=== PATIENT | male | born 1950 | race African-American/Black ===

== ENCOUNTER 2018-12-07 12:52 | Inpatient (IN) | payer MEDICARE ==
--- NOTE | 2018-12-07 13:39 | RAD ---
FPortable chest radiograph: 12/07/2018 COMPARISON: 10/05/2014 HISTORY:Left sided deficits, vomiting, hypertension, fall FINDINGS: Cardiac silhouette is prominent suggesting magnification and/or enlargement. No pneumothora x or pleural fluid. No focal consolidation or alveolar edema. IMPRESSION: Prominent cardiac silhouette with no focal consolidation or alveolar edema.
[2018-12-07] MEDS ORDERED: niCARdipine 20MG In NaCl 20 MG/200 ML BAG ONE (13:49)
--- NOTE | 2018-12-07 13:59 | CT ---
FCT brain noncontrast: 12/07/2018 at 1:46 PM HISTORY: 68-year-old male with hypertension, nausea, and vomiting. COMPARISON: 01/26/2016 Dr. Turner discussed the findings and recommendation to ER nurse Juan Alberto Malhotra RN, at 1:55 PM on 12/08/19 19. She will notify Dr. Schumacher as soon as possible. FINDINGS: There is a new round approximately 2.5 x 2.5 cm intra-axial hematoma at the superior medial aspect of the right cerebellar hemisphere, superior to the level of the dentate nucleus. It indents the latera l aspect of the fourth ventricle, but the fourth ventricle is generous in its caliber. No obstructive hydrocephalus. Chronic ischemic white matter changes. No supratentorial hemorrhage, mass effect, mid line shift, or extra-axial fluid collection. IMPRESSION: 1. Acute 2.5 cm intra-axial hematoma in the upper aspect of the right cerebellar hemisphere. 2. Recommend neurosurgical consultation. The patient will require workup with imaging study of the br ain with and without contrast to rule out underlying pathology such as neoplasm, at sometime in the n ear future.
[2018-12-07 14:02] LABS: #Lymphocytes 0.9 thou/uL (1.20-3.40); #Monocytes 0.8 thou/uL (0.11-0.59); #Neutrophils 12.3 thou/uL (1.40-6.50); %Basophils 0.2 % (0.0-1.0); %Eosinophils 0.2 % (0.0-10.0); %Lymphocytes 6.1 % (21.0-51.0); %Monocytes 5.8 % (0.0-10.0); %Neutrophils 87.5 % (42.0-75.0); Hemoglobin 15.8 g/dL (14.0-18.0); Mean Corpuscular HGB CONC 33.8 g/dL (32.0-36.0); Mean Corpuscular Hemoglobin 30.3 pg (27.0-31.0); Mean Corpuscular Volume 89.4 fL (78.0-98.0); Mean Platelet Volume 8.9 fL (7.4-10.4); Platelet Count 238 thou/uL (130-400); RBC Distribution Width 12.7 % (11.5-14.5); Red Blood Cell (RBC) Count 5.23 mill/uL (4.70-6.10)
[2018-12-07 14:25] LABS: ALT (SGPT) 7 U/L (8-55); AST (SGOT) 12 U/L (5-34); Albumin 3.3 g/dL (3.4-4.8); Alkaline Phosphatase 68 U/L (40-150); Anion Gap 13 mmol/L (10-20); BUN (Urea Nitrogen) 12 mg/dL (8.4-25.7); Bilirubin, Total 0.3 mg/dL (0.2-1.2); CK (CPK) 85 U/L (30-200); Calc. Creatinine Clearance 0 mL/min (70-130); Calcium 9.6 mg/dL (7.8-10.44); Carbon Dioxide 28 mmol/L (23-31); Chloride 100 mmol/L (98-107); Estimated GFR-MDRD 76; Globulin 4.7 g/dL (2.4-3.5); Glucose 163 mg/dL (80-115); Potassium 3.8 mmol/L (3.5-5.1); Sodium 137 mmol/L (136-145)
[2018-12-07] MEDS ORDERED: Bisacodyl 10 MG SUPP PR PRN (14:45)
[2018-12-07] MEDS ORDERED: Senokot S 8.6-50 MG TAB PO PRN (14:45)
[2018-12-07] MEDS ORDERED: Acetaminophen 325 MG TAB PO PRN (14:45)
[2018-12-07] MEDS ORDERED: Bisacodyl 5 MG TAB PO PRN (14:45)
[2018-12-07 14:58] LABS: INR-International Normal Ratio 1.1; PTT 31.6 SEC (22.9-36.1); Prothrombin Time 14.5 SEC (12.0-14.7)
[2018-12-07] MEDS ORDERED: niCARdipine 40MG In NaCl 40 MG/200 ML BAG IVPB SCH (15:00)
[2018-12-07] MEDS ORDERED: Communication Order-Pharmacy FS PRN (15:04)
[2018-12-07] MEDS ORDERED: Pantoprazole 40 MG VIAL IVP SCH (15:30)
[2018-12-07 16:20] LABS: Bilirubin Negative (Negative); Blood, Urine Moderate (Negative); Clarity CLOUDY (Clear); Glucose, Urine (Dipstick) 100 mg/dL (Negative); Leukocyte Negative (Negative); Nitrite Negative (Negative); Protein, Urine (Dipstick) > or equal to 300 mg/dL (Neg-Trace); Specific Gravity, Urine 1.024 (1.002-1.036); pH, Urine 6.5 (5.0-9.0)
[2018-12-07 16:24] LABS: Pathc Cast-AUWi Flag 1.63 (0-2.49)
[2018-12-07 16:26] LABS: Sperm-AUWi Flag 1449.3 (0-9.9); Yeast-AUWi Flag 26.2 (0-25.0)
[2018-12-07 16:38] LABS: Bacteria/HPF None Seen HPF (None Seen); Hyaline Casts/LPF NONE SEEN LPF (0-3 Hyaline); Other Casts/LPF None Seen LPF (0-3 Hyaline); Sperm/HPF 4+ HPF (None Seen); Squamous Epithelial 0-3 HPF (0-3); WBC/HPF 0-3 HPF (0-3); Yeast-All Forms None Seen HPF (None Seen)
[2018-12-07 16:56] VITALS: BMI 25.4
[2018-12-07] MEDS: HYDROcodone/Acetaminophen 5/325 mg Tablet PO PRN (17:19)
[2018-12-07] MEDS: Sodium Chloride 0.9% 1,000 ML IV SCH (17:23)
[2018-12-07] MEDS: Sodium Chloride 0.9% (PF) 10 ML VIAL FS PRN (17:25)
[2018-12-07] MEDS: Ondansetron PF 4 MG/2 ML Vial IVP PRN (17:31)
[2018-12-07] MEDS: hydrALAZINE 20 MG/ML VIAL SLOW IVP PRN ×2 (17:37→21:57)
[2018-12-07] MEDS: niCARdipine HCl 50 MG in Sodium Chloride 0.9% 250 ML 230 ML IVPB SCH ×2 (17:45→21:55)
--- NOTE | 2018-12-07 21:44 | HP ---
DICTATED FOR: Dawit Morelos MD This is a 50-minute initial patient evaluation of which greater than 50% of the exam was spent in counseling and coordinating the patient's care. Remainder of the exam was spent in review of appropriate medical records and review of appropriate imaging studies. CHIEF COMPLAINT: Increased falls and left-sided weakness with right cerebellar hemorrhage with right cerebellar bleed. HISTORY OF PRESENT ILLNESS: Mr. Cuadra is a pleasant 68-year-old male, who presents to [facility] with his for the above complaints. Supposedly, he has a remote history of CVA, though has not been on any blood thinners. He is a daily smoker. He presents today with progressive worsening of left-sided weakness and some occasional falls. The patient reports that has been especially worse today which prompted him to come to the emergency room. He denies neck pain or any head or neck trauma. He does have some baseline left-sided weakness, although again this is more pronounced over the past several days. Review of the patient's head CT from today showed some right cerebellar hemorrhage without significant mass effect or midline shift. Fourth ventricle appears to be open. PHYSICAL EXAMINATION: The patient is awake, alert, and appropriate. Currently, his GCS is 15. He has very rare occasional slurred speech, but is appropriate in his interaction with me. His provides some of his history. He follows commands equally in all 4 extremities, though appears to have some mild weakness in the left arm greater than the left leg. He is oriented to person, place, and time. He has a little bit of difficulty with dysmetria bilaterally . Pupils are equal, round, and reactive bilaterally. He does not appear to have any left-sided pronator drift. IMPRESSION AND DIAGNOSIS: Increased falls with some slurred speech with right cerebellar hemorrhage. PLAN: I have discussed the patient's case and imaging with Dr. Morelos. At this time, the patient does not require any type of neurosurgical intervention. I have discussed this with the patient and his family. At this time, we will admit him to the CCU for diligent neuro check. We will plan for repeat head CT sooner should his neurologic exam warranted. At this time, I would like him to be n.p.o. and head of bed elevated at 30 degrees and obviously, we will hold any blood thinners. We will also follow up regarding . Please call with any changes in the patient's neurologic status. Otherwise, we will continue to follow. Job ID: [id number]
[2018-12-08] MEDS: hydrALAZINE 20 MG/ML VIAL SLOW IVP PRN ×3 (00:04→06:16)
[2018-12-08] MEDS: niCARdipine HCl 50 MG in Sodium Chloride 0.9% 250 ML 230 ML IVPB SCH ×5 (00:35→17:41)
--- NOTE | 2018-12-08 08:11 | CT ---
FPRELIMINARY REPORT: CT Head Without Contrast EXAM DATE/TIME: 12/08/2018 3:41 AM CLINICAL HISTORY: 68 years old, male; Condition or disease; Other: Ich; Patient HX: F/u ich TECHNIQUE: Imaging protocol: Axial computed tomography images of the head/brain without contrast. COMPARISON: No relevant prior studies available. FINDINGS: Brain: Known intracranial hemorrhage. Report billed as followup; however, no prior images have been submitted for comparison. 2.7 cm right paracentral cerebellar intraparenchymal hematoma. Volume loss and chronic small vessel ischemic change. No brain edema. Ventricles: Normal. No ventriculomegaly. Bones/joints: Unremarkable. No acute fracture. Sinuses: Small polyp versus mucus retention cyst in the sphenoid sinus. Mastoid air cells: Visualized mastoid air cells are unremarkable. No mastoid effusion. Soft tissues: Unremarkable. IMPRESSION: 1. Known intracranial hemorrhage. Report billed as followup; however, no prior images have been submitted for comparison. 2. 2.7 cm right paracentral cerebellar intraparenchymal hematoma. Thank you for allowing us to participate in the care of your patient. Dictated and Authenticated by: Cameron Jean MD 12/08/2018 3:57 AM Central Time ([place] & [place]) Final report by Dr. Turner Emergency after-hours study CT brain noncontrast: 12/08/2018 at 3:42 AM HISTORY: Follow-up intracranial hemorrhage in 68-year-old male COMPARISON: 12/07/2018 at 1:46 PM FINDINGS: Agree with preliminary report by virtual radiologic. IMPRESSION: 1. Approximately 2.5 cm acute intra-axial hematoma in the right cerebellar hemisphere with minimal lo radha mass effect. No obstructive hydrocephalus. 2. No interval change. Transcribed Date/Time: 12/08/2018 1:12 PM
[2018-12-08] MEDS: Pantoprazole 40 MG VIAL IVP SCH (08:30)
[2018-12-08] MEDS: Sodium Chloride 0.9% (PF) 10 ML VIAL FS PRN (08:30)
[2018-12-08] MEDS ORDERED: Dextrose 50% Abboject 50 ML SYRINGE SLOW IVP PRN (08:57)
[2018-12-08] MEDS ORDERED: Dextrose 5% in Water 1,000 ML IV PRN (08:57)
[2018-12-08] MEDS ORDERED: HumaLOG 300 UNITS/3 ML VIAL SC PRN (08:57)
--- NOTE | 2018-12-08 10:09 | PDOC.PN ---
- Subjective Encounter Start Date: 12/08/18 Encounter Start Time: 10:00 Subjective: pt up in bed upset since he cannot eat. Pt was refusing lab work but upon -: talking with him he has agreeded. we were consulted for medical -: managmenet. - Objective Resuscitation Status - Order Detail: 12/07/18 14:45 Resuscitation Status Routine Co-Sign Provider: Resuscitation Status: FULL: Full Resuscitation Vital Signs & Weight: Vital Signs (12 hours) Temp Pulse BP Pulse Ox 12/08/18 07:12 98 12/08/18 06:16 75 156/60 H 12/08/18 03:55 75 147/56 H 12/08/18 03:00 98.2 F 12/08/18 00:04 75 141/57 H 12/07/18 23:00 98.6 F Weight Weight 172 lb 6.424 oz Most Recent Monitor Data Heart Rate from ECG 86 NIBP 145/59 NIBP BP-Mean 87 Respiration from ECG 18 SpO2 96 I&O: 12/07/18 12/08/18 12/09/18 06:59 06:59 06:59 Intake Total 2199 200 Output Total 300 200 Balance 1899 0 Result Diagrams: 12/07/18 13:55 12/07/18 13:55 Phys Exam - Physical Examination Neck: no nodes, no JVD, supple, full ROM Respiratory: no wheezing, no rales, no rhonchi, wheezing present, clear to auscultation bilateral Cardiovascular: RRR, no significant murmur, no rub, gallop, irregular Gastrointestinal: soft, non-tender, no distention, positive bowel sounds Neurological: non-focal, normal sensation, moves all 4 limbs Dx/Plan (1) Hemorrhagic stroke Code(s): I61.9 - NONTRAUMATIC INTRACEREBRAL HEMORRHAGE, UNSPECIFIED Status: Acute (2) HTN (hypertension) Code(s): I10 - ESSENTIAL (PRIMARY) HYPERTENSION Status: Acute (3) Diabetes Code(s): E11.9 - TYPE 2 DIABETES MELLITUS WITHOUT COMPLICATIONS Status: Acute (4) Smoking Code(s): F17.200 - NICOTINE DEPENDENCE, UNSPECIFIED, UNCOMPLICATED Status: Acute - Plan will check hbg alc, will continue his home meds. -: pt is a smoker wants a nicotine patch. -: PT/OT consulted may need rehab if pt agrees -: pt still on nicardipine * . Review of Systems - Review of Systems Respiratory: negative: Cough, Dry, Shortness of Breath, Hemoptysis, SOB with Excertion, Pleuritic Pain, Sputum, Wheezing Cardiovascular: negative: chest pain, palpitations, orthopnea, paroxysmal nocturnal dyspnea, edema, light headedness, other Gastrointestinal: negative: Nausea, Vomiting, Abdominal Pain, Diarrhea, Constipation, Melena, Hematochezia, Other - Medications/Allergies Allergies/Adverse Reactions: Allergies Allergy/AdvReac Type Severity Reaction Status Date / Time No Known Allergies Allergy Unverified 07/26/15 06:15 Medications: Current Medications Acetaminophen (Tylenol) 650 mg PO Q4H PRN PRN Reason: Headache/Fever/Mild Pain (1-3) Hydrocodone Bitart/Acetaminophen (Ventura 5/325) 1 tab PO Q4H PRN PRN Reason: Moderate to Severe Pain (6-10) Last Admin: 12/07/18 17:19 Dose: 1 tab Amlodipine Besylate (Norvasc) 5 mg PO DAILY DANAY Bisacodyl (Dulcolax) 10 mg AR DAILYPRN PRN PRN Reason: Constipation Bisacodyl (Dulcolax) 10 mg PO DAILYPRN PRN PRN Reason: Constipation Carbidopa/Levodopa (Sinemet 25-250) 1 tab PO TID DANAY Dextrose/Water (Dextrose 50%) 25 gm SLOW IVP PRN PRN PRN Reason: Hypoglycemia Glucagon (Glucagon) 1 mg IM PRN PRN PRN Reason: Hypoglycemia Hydralazine HCl (Apresoline) 10 mg SLOW IVP Q15MIN PRN PRN Reason: SBP greater than 140 Last Admin: 12/08/18 06:16 Dose: 10 mg Nicardipine/Sodium Chloride (Cardene Iv) 40 mg in 200 mls @ 0 mls/hr IVPB INF DANAY; Protocol Sodium Chloride (Normal Saline 0.9%) 1,000 mls @ 50 mls/hr IV .Q20H DANAY Last Admin: 12/07/18 17:23 Dose: 1,000 mls Nicardipine HCl 50 mg/ Sodium (Chloride) 250 mls @ 0 mls/hr IVPB INF DANAY; Protocol Last Admin: 12/08/18 08:32 Dose: 250 mls Dextrose/Water (D5w) 1,000 mls @ 0 mls/hr IV .Q0M PRN PRN Reason: Hypoglycemia Insulin Human Lispro (Humalog) 0 units SC .MILD SLIDING SCALE PRN PRN Reason: Mild Correctional Scale Levothyroxine Sodium (Synthroid) 50 mcg PO DAILY [facility] Losartan Potassium (Cozaar) 50 mg PO DAILY [facility] Metoprolol Tartrate (Lopressor) 50 mg PO BID [facility] Mirtazapine (Remeron) 30 mg PO HS [facility] Miscellaneous Information (Communication Order-Pharmacy) 0 each FS PRN PRN PRN Reason: HOLD BLOOD THINNERS Non-Formulary Medication (Cholecalciferol (Vitamin D3) [Vitamin D3]) 1,000 unit PO DAILY [facility] Ondansetron HCl (Zofran) 4 mg IVP Q6H PRN PRN Reason: Nausea/Vomiting Last Admin: 12/07/18 17:31 Dose: 4 mg Pantoprazole Sodium (Protonix) 40 mg IVP DAILY [facility] Last Admin: 12/08/18 08:30 Dose: 40 mg Senna/Docusate Sodium (Senokot S) 2 tab PO BIDPRN PRN PRN Reason: Constipation Sodium Chloride (Flush - Normal Saline) 10 ml IVF PRN PRN PRN Reason: Saline Flush Sodium Chloride (Normal Saline Pf) 10 ml FS PRN PRN PRN Reason: RECONSTITUTION Last Admin: 12/08/18 08:30 Dose: 10 ml
[2018-12-08 10:13] LABS: #Basophils 0.1 thou/uL (0.0-0.2); #Lymphocytes 1.6 thou/uL (1.20-3.40); #Monocytes 1.2 thou/uL (0.11-0.59); #Neutrophils 10.9 thou/uL (1.40-6.50); %Basophils 0.4 % (0.0-1.0); %Eosinophils 0.3 % (0.0-10.0); %Lymphocytes 11.7 % (21.0-51.0); %Monocytes 8.7 % (0.0-10.0); Hemoglobin 14.4 g/dL (14.0-18.0); Mean Corpuscular HGB CONC 33.8 g/dL (32.0-36.0); Mean Corpuscular Hemoglobin 30.3 pg (27.0-31.0); Mean Corpuscular Volume 89.7 fL (78.0-98.0); Mean Platelet Volume 8.5 fL (7.4-10.4); Platelet Count 236 thou/uL (130-400); RBC Distribution Width 13.1 % (11.5-14.5); Red Blood Cell (RBC) Count 4.76 mill/uL (4.70-6.10); White Blood Cell (WBC) Count 13.7 thou/uL (4.8-10.8)
[2018-12-08 10:22] LABS: Hemoglobin A1c 5.5 % (4.0-6.0)
[2018-12-08] MEDS: Sodium Chloride 0.9% 1,000 ML IV SCH (10:39)
[2018-12-08 10:47] LABS: ALT (SGPT) 8 U/L (8-55); AST (SGOT) 14 U/L (5-34); Albumin 3.2 g/dL (3.4-4.8); Alkaline Phosphatase 55 U/L (40-150); Anion Gap 14 mmol/L (10-20); BUN (Urea Nitrogen) 16 mg/dL (8.4-25.7); Bilirubin, Total 0.4 mg/dL (0.2-1.2); Calc. Creatinine Clearance 46 mL/min (70-130); Carbon Dioxide 23 mmol/L (23-31); Chloride 106 mmol/L (98-107); Estimated GFR-MDRD 48; Globulin 4.3 g/dL (2.4-3.5); Glucose 126 mg/dL (80-115); Potassium 3.6 mmol/L (3.5-5.1); Protein, Total 7.5 g/dL (5.8-8.1); Sodium 139 mmol/L (136-145)
[2018-12-08] MEDS ORDERED: Amlodipine 5 MG TAB PO SCH (12:45)
[2018-12-08] MEDS: Ondansetron PF 4 MG/2 ML Vial IVP PRN (13:11)
[2018-12-08] MEDS: Carbidopa/Levodopa 25-250 mg Tablet PO SCH ×2 (14:40→21:28)
--- NOTE | 2018-12-08 15:31 | PRG ---
DATE OF SERVICE: This is a 30-minute initial hospital visit note, in which 30 minutes were spent reviewing the imaging, record evaluation, examination of the patient, formulation of plan. Greater than 50% time was spent in counseling on Abdoul Cuadra. SUBJECTIVE: Mr. Cuadra was admitted with a right deep cerebellar hemorrhage. He states he fell. However, he did have hypotension upon presentation. There is an ovoid hemorrhage in the deep right cerebellar nuclei and I suspect he is having some cerebellar findings and this is the culprit of his symptoms. It has been stable on repeat head CT this morning and there was no evidence of hydrocephalus and only mild effacement of the fourth ventricle. Essentially, I would be fine with transfer to the neuro floor if we can get him off his nicardipine drip. I would be fine with a systolic blood pressure below 150. He will need followup in approximately 6 weeks with likely an MRI of the brain without and with contrast at that time. He will be transferred to the neuro floor. DIAGNOSIS: Right cerebellar hemorrhage, likely related to hypertension. Job ID: [id number]
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
[2018-12-08] MEDS ORDERED: Metoprolol Tartrate 50 MG TAB PO SCH (21:00)
[2018-12-08] MEDS: Mirtazapine 30 MG TAB PO SCH (21:28)
[2018-12-08] MEDS: Metoprolol Tartrate 50 MG TAB PO SCH (21:28)
[2018-12-09] MEDS: Mirtazapine 30 MG TAB PO SCH ×2 (02:23→21:44)
[2018-12-09] MEDS: Carbidopa/Levodopa 25-250 mg Tablet PO SCH ×4 (02:23→21:44)
[2018-12-09] MEDS: Metoprolol Tartrate 50 MG TAB PO SCH ×3 (02:23→21:44)
[2018-12-09] MEDS: niCARdipine HCl 50 MG in Sodium Chloride 0.9% 250 ML 230 ML IVPB SCH (02:53)
[2018-12-09] MEDS: Levothyroxine Sodium 50 MCG TAB PO SCH (06:15)
[2018-12-09] MEDS: Sodium Chloride 0.9% 1,000 ML IV SCH (06:20)
[2018-12-09] MEDS: Losartan 25 MG TAB PO SCH (08:58)
[2018-12-09] MEDS: Amlodipine 5 MG TAB PO SCH (08:59)
[2018-12-09] MEDS ORDERED: Amlodipine 5 MG TAB PO SCH (09:00)
[2018-12-09] MEDS: Pantoprazole 40 MG VIAL IVP SCH (09:01)
--- NOTE | 2018-12-09 11:46 | PRG ---
DATE OF SERVICE: 12/09/2018 SUBJECTIVE: Romain Cuadra this morning was eating breakfast. He is feeding himself. OBJECTIVE: VITAL SIGNS: The heart rate was in the 60s, blood pressure 151/61, respiratory rates in the high teens. He is in no distress. Oximetry is 98%. LUNGS: Clear. HEART: Regular rhythm. ABDOMEN: Soft. EXTREMITIES: Without asymmetry. Adjust his hypertension medications and we are weaning him off his Cardene. LABORATORY DATA: White count is 13.7, hemoglobin 14.4, platelets 236. Electrolytes are unremarkable. Creatinine went up to 1.71. This will need to continue to be monitored. Once he is off Cardene, he can transfer out of the Critical Care Unit. Clinically, his cerebellar hemorrhage is stable. Job ID: [id number] MTDD
--- NOTE | 2018-12-09 11:54 | PRG ---
DATE OF SERVICE: 12/09/2018 This is Kanu Pan PA-C dictating a report for Dawit Morelos MD. This is a 10-minute subsequent patient evaluation, in which greater than 50% of the exam was spent in counseling and coordinating the patient's care. Remainder of the exam was spent medical records. SUBJECTIVE: Mr. Cuadra is now hospital day #2 having sustained a right cerebellar intraparenchymal hemorrhage. His blood pressure control is still requiring Cardene, although our medical colleagues are diligently working to improve this with oral medications so that he may be transitioned out of the unit. PHYSICAL EXAMINATION: GENERAL: The patient is alert, awake, and appropriate. NEUROLOGIC: GCS is 15. He follows commands equally in all four extremities and frankly looks improved compared to his exam even yesterday. ASSESSMENT AND PLAN: He has been working with therapies, though continues to have significant ataxia and balance difficulties, which is consistent to the location of his bleed. I will attempt to update his later this afternoon, but from neurosurgical standpoint no surgery is required and we will sign off with the understanding that should his neurologic exam change we will be happy to re-evaluate the patient. Please call with any changes in the patient's neurologic status. Job ID: [id number]
[2018-12-10] MEDS: HYDROcodone/Acetaminophen 5/325 mg Tablet PO PRN (01:47)
[2018-12-10] MEDS: Sodium Chloride 0.9% 1,000 ML IV SCH ×2 (01:56→21:12)
[2018-12-10] MEDS: Levothyroxine Sodium 50 MCG TAB PO SCH (07:28)
[2018-12-10] MEDS: Amlodipine 5 MG TAB PO SCH (08:37)
[2018-12-10] MEDS: Losartan 25 MG TAB PO SCH ×2 (08:37→20:51)
[2018-12-10] MEDS: Metoprolol Tartrate 50 MG TAB PO SCH ×2 (08:38→20:51)
[2018-12-10] MEDS: Carbidopa/Levodopa 25-250 mg Tablet PO SCH ×3 (08:43→20:51)
[2018-12-10] MEDS: hydrALAZINE 20 MG/ML VIAL SLOW IVP PRN ×2 (10:18→22:04)
[2018-12-10] MEDS ORDERED: hydrALAZINE 10 MG TAB PO SCH (11:15)
--- NOTE | 2018-12-10 14:38 | PRG ---
DATE OF SERVICE: 12/10/2018 This is Kanu Pan PA-C dictating a report for Dawit Morelos MD. 10 minute subsequent patient evaluation, in which greater than 50% of the exam was spent in counseling and coordinating the patient's care. Remainder of the exam was spent in review of patient's medical records and formulation of treatment plan. Mr. Cuadra is hospital day #3 having sustained a right cerebellar hemorrhage secondary to hypertension. The patient's blood pressure is under much better control with oral medications and he is off his nicardipine. He is safe to transfer to the floor at this time. Neurologically, he looks good. GCS is 15. He has improvement in the slurred speech. He does again have some mild weakness into the left upper and lower extremities. He states he did work with physical therapy yesterday. His main thing today is working with therapies, so he may be stronger on his feet and we will work towards getting him to rehab. Please call with any changes in patient's neurologic status. Job ID: [id number]
--- NOTE | 2018-12-10 16:29 | PRG ---
DATE OF SERVICE: 12/10/2018 SUBJECTIVE: Abdoul Cuadra is clinically unchanged. He is still in the Critical Care Unit. OBJECTIVE: VITAL SIGNS: His heart rate is 69, blood pressure 169/70, respiratory rate , temperature is 97 to 98. LUNGS: Unchanged. HEART: Unchanged. ABDOMEN: Unchanged. LABORATORY DATA: The only lab today is glucose, as these have all been essentially normal. IMPRESSION: Cerebellar bleed, clinically stable. His blood pressures have been relatively controlled. He is tentatively scheduled to move out of the Critical Care Unit. He has left lower and left upper extremity weakness. He also has a chronic baseline, marginally functional mental status from what I can tell, but he is very cooperative. I do not think, he could ever live independently again. He is stable to move. We will sign off when he transfers out of Critical Care. Job ID: [id number]
[2018-12-10] MEDS: Mirtazapine 30 MG TAB PO SCH (20:51)
--- NOTE | 2018-12-10 21:09 | CT ---
CT BRAIN WITHOUT CONTRAST HISTORY: Intracranial hemorrhage, change in mentation. COMPARISON: 12/08/2018 FINDINGS: The approximately 2.7 cm right cerebellar hemispheric acute intra-axial hematoma with minimal local m ass effect is again seen. No obstructive hydrocephalus. No interval change. IMPRESSION: Stable exam
[2018-12-11] MEDS: hydrALAZINE 20 MG/ML VIAL SLOW IVP PRN ×3 (04:07→13:00)
[2018-12-11] MEDS: Levothyroxine Sodium 50 MCG TAB PO SCH (05:04)
--- NOTE | 2018-12-11 06:51 | PDOC.PN ---
- Subjective Encounter Start Date: 12/10/18 - Objective Resuscitation Status - Order Detail: 12/07/18 14:45 Resuscitation Status Routine Co-Sign Provider: Resuscitation Status: FULL: Full Resuscitation Vital Signs & Weight: Vital Signs (12 hours) Temp Pulse Resp BP BP Pulse Ox 12/11/18 04:37 165/70 H 12/11/18 04:07 60 189/79 H 12/11/18 03:25 97.5 F L 68 20 192/78 H 98 12/10/18 23:16 98.7 F 67 18 167/72 H 98 12/10/18 22:04 65 177/87 H 12/10/18 20:06 98.2 F 64 20 208/86 H 94 L Weight Weight 173 lb 8.061 oz Most Recent Monitor Data Heart Rate from ECG 52 NIBP 166/64 NIBP BP-Mean 98 Respiration from ECG 11 SpO2 99 I&O: 12/09/18 12/10/18 12/11/18 06:59 06:59 06:59 Intake Total 2724 1707 1538 Output Total 700 1725 820 Balance 2023 Result Diagrams: 12/08/18 10:05 12/08/18 10:05 Dx/Plan (1) Hemorrhagic stroke Code(s): I61.9 - NONTRAUMATIC INTRACEREBRAL HEMORRHAGE, UNSPECIFIED Status: Acute (2) HTN (hypertension) Code(s): I10 - ESSENTIAL (PRIMARY) HYPERTENSION Status: Acute (3) Diabetes Code(s): E11.9 - TYPE 2 DIABETES MELLITUS WITHOUT COMPLICATIONS Status: Acute (4) Smoking Code(s): F17.200 - NICOTINE DEPENDENCE, UNSPECIFIED, UNCOMPLICATED Status: Acute - Plan * .
[2018-12-11] MEDS: Losartan 25 MG TAB PO SCH ×2 (08:31→20:59)
[2018-12-11] MEDS: Amlodipine 5 MG TAB PO SCH (08:32)
[2018-12-11] MEDS: Carbidopa/Levodopa 25-250 mg Tablet PO SCH ×3 (08:32→20:59)
[2018-12-11] MEDS: Metoprolol Tartrate 50 MG TAB PO SCH ×2 (08:32→21:00)
[2018-12-11] MEDS ORDERED: hydrALAZINE 10 MG TAB PO SCH (09:00)
--- NOTE | 2018-12-11 09:59 | PRG ---
DATE OF SERVICE: 12/11/2018 This is a 15-minute subsequent visit note, in which 15 minutes were spent reviewing the imaging record, evaluation, examination of the patient, formulation of plan greater than 50% time spent in counseling on Abdoul Cuadra. I saw Mr. Cuadra yesterday in the ICU. He was alert, appropriate. He has mild cerebellar findings, but neurologically, he is coming along just fine. He has been weaned off the nicardipine drip. At this point, his neurosurgical issues remain nonsurgical, and we will plan for transfer to the floor and to our medical service. We have spoken with them as well in this regard. I will arrange a followup head CT in my clinic in 1 month, and we should hold any blood thinners at this time. DIAGNOSIS: Cerebral hemorrhage related to hypertension. Job ID: [id number]
--- NOTE | 2018-12-11 12:27 | PQF ---
CLINICAL DOCUMENTATION IMPROVEMENT CLARIFICATION FORM: ICD-10 Updated PLEASE DO AN ADDENDUM TO THE PROGRESS NOTE WITH ANY DOCUMENTATION UPDATES OR ADDITIONS AND CARRY THROUGH TO DC SUMMARY. THANK YOU. DATE: 12/11/2018; 12/12/2018 ATTN: Dr. Rausch; Dr. Spring Please exercise your independent, professional judgment in responding to the clarification form. Clinical indicators are provided on the bottom of this form for your review Please check appropriate box(s): [ X ] Acute Renal Failure (ARF) / Acute Kidney Injury (TI) [ ] Acute on Chronic Renal Failure please specify Stage of CKD ____(see below) [ ] CKD without ARF/TI please specify Stage of CKD [ ] Other diagnosis [ ] Unable to determine In addition, please specify: Present on Admission (POA): [ ] Yes [ X ] No [ ] Unable to determine For continuity of documentation, please document condition throughout progress notes and discharge summary. Thank You. CLINICAL INDICATORS - SIGNS / SYMPTOMS/ LABS are present in the medical record: 12/07/2018 12/08/2018 LABS: Creatinine 1.16 1.71 Estimated GFR 76 48 12/09(Luna): Creatinine went up to 1.71 This will need to continue to be monitored RISKS: H&P 12/07: Remote hx of CVA. Dx: Right cerebellar hemorrhage Pn 12/07: HTN, Diabetes. TREATMENT: Order 12/07- 12/11: NS 1,000ml IV 50 mls/hr Order Lab CMP 12/07, 12/08 National [employer] Guidelines for CKD Staging Stage I Kidney damage with normal or increased GFR GFR > 90 Stage II Kidney damage with mildly decreased GFR GFR 60-89 Stage III Kidney damage with moderately decreased GFR GFR 30-59 Stage IV Kidney damage with severely decreased GFR GFR 16-29 Stage V Kidney failure GFR<15 ESRD End Stage Renal Disease On dialysis Acute Renal Failure/Acute Kidney Failure defined as: Increases in SCr by (>) 0.3 mg/dl within 48 hours OR- Increases in SCr by (>) 1.5 times baseline, known or presumed to have occurred within the prior 7 days OR- Urine volume < 0.5 ml/kg/hour for 6 hours (KDIGO supplement 2012 for RIFLE/JOSH criteria) Thank you, Roxanne (This form is maintained as a part of the permanent medical record) 2015 [employer] All Rights Reserved Roxanne Beverly RN, BSN [email or web address] Office: [phone] [facility] DIVISIONBrian
[2018-12-11] MEDS ORDERED: Hydrochlorothiazide 25 MG TAB PO SCH (16:45)
--- NOTE | 2018-12-11 16:57 | PRG ---
DATE OF SERVICE: 12/11/2018 SUBJECTIVE: The patient denies any particular complaints, and he feels strongly that he wants to go home. He knows that it has been recommended that he consider going to rehab at this time, but he thinks he would be okay. OBJECTIVE: VITAL SIGNS: Temperature 97.7, pulse 56, respirations 16, O2 saturation 98%, and BP is 164/70. GENERAL APPEARANCE: Age-appropriate male. He is in no distress. He is conversant, a little difficult to understand, but seems appropriate. HEART: Regular rate and rhythm. LUNGS: Clear bilaterally. ABDOMEN: Soft, nontender, and nondistended. Positive bowel sounds. No masses and no organomegaly. EXTREMITIES: Warm and dry. NEUROLOGIC: Grossly neurologically intact. LABORATORY DATA: Blood sugar 95 to 145. IMPRESSION AND PLAN: 1. Acute cerebellar bleed, nonsurgical candidate, appears to be stable. Continue with rehab therapies and consider outpatient rehab versus swing bed or inpatient. Currently, Case Management continues to help work with them through that process. After discussing this with the patient, he appears to be more amenable to it and open to the possibilities at least. 2. Acute renal insufficiency. The patient's creatinine has been up above his baseline and his estimated GFR declines to 48 at last check. We will repeat that now as it has been a couple of days since that was last evaluated. 3. Hypertension. The patient is on several medications including losartan 50 b.i.d., Lopressor 50 b.i.d., amlodipine 10 mg daily along with p.r.n. hydralazine. He has blood pressure continues to run a bit high. We will add some hydrochlorothiazide and may need more aggressive interventions as well. 4. Hypothyroidism. Continue with his usual home regimen. 5. Diabetes mellitus, well controlled. 6. Tobacco abuse. The patient has been counseled regarding cessation. Job ID: [id number]
[2018-12-11 17:37] LABS: Anion Gap 10 mmol/L (10-20); BUN (Urea Nitrogen) 11 mg/dL (8.4-25.7); Calc. Creatinine Clearance 74 mL/min (70-130); Calcium 8.7 mg/dL (7.8-10.44); Carbon Dioxide 25 mmol/L (23-31); Chloride 105 mmol/L (98-107); Estimated GFR-MDRD 83; Glucose 120 mg/dL (80-115); Potassium 3.3 mmol/L (3.5-5.1); Sodium 137 mmol/L (136-145)
[2018-12-11] MEDS: Mirtazapine 30 MG TAB PO SCH (20:59)
[2018-12-12] MEDS: hydrALAZINE 20 MG/ML VIAL SLOW IVP PRN ×2 (04:51→07:37)
[2018-12-12] MEDS: Levothyroxine Sodium 50 MCG TAB PO SCH (05:00)
[2018-12-12] MEDS ORDERED: Potassium Chloride 20 MEQ TAB PO SCH (08:15)
--- NOTE | 2018-12-12 08:15 | PDOC.PN ---
- Subjective Encounter Start Date: 12/12/18 Encounter Start Time: 10:50 Subjective: Patient feeling ok. No pain this AM. Some dysarthria. - Objective Resuscitation Status - Order Detail: 12/07/18 14:45 Resuscitation Status Routine Co-Sign Provider: Resuscitation Status: FULL: Full Resuscitation MAR Reviewed: Yes Vital Signs & Weight: Vital Signs (12 hours) Temp Pulse Resp BP BP Pulse Ox 12/12/18 07:43 97.9 F 55 L 14 185/77 H 98 12/12/18 07:37 55 L 198/79 H 12/12/18 04:51 59 L 198/81 H 12/12/18 04:00 98.3 F 63 19 177/80 H 96 12/12/18 00:00 97.9 F 63 18 167/85 H 96 12/11/18 20:59 97 Weight Weight 173 lb 8.061 oz Most Recent Monitor Data Heart Rate from ECG 52 NIBP 166/64 NIBP BP-Mean 98 Respiration from ECG 11 SpO2 99 I&O: 12/11/18 12/12/18 12/13/18 06:59 06:59 06:59 Intake Total 1538 Output Total 820 425 Balance 718 -425 Result Diagrams: 12/08/18 10:05 12/11/18 17:03 Additional Labs: Accuchecks 12/12/18 12/11/18 12/11/18 06:25 19:25 17:31 POC Glucose 98 121 H 111 H 12/11/18 12/11/18 12/10/18 10:34 04:59 21:18 POC Glucose 107 111 H 145 H 12/10/18 12/10/18 16:35 12:01 POC Glucose 95 149 H Phys Exam - Physical Examination Constitutional: NAD HEENT: moist MMs Respiratory: no wheezing, no rales, no rhonchi Cardiovascular: RRR, no significant murmur Gastrointestinal: soft, non-tender, positive bowel sounds Musculoskeletal: no edema Psychiatric: normal affect, A&O x 3 Dx/Plan (1) Hemorrhagic stroke Code(s): I61.9 - NONTRAUMATIC INTRACEREBRAL HEMORRHAGE, UNSPECIFIED Status: Acute (2) HTN (hypertension) Code(s): I10 - ESSENTIAL (PRIMARY) HYPERTENSION Status: Chronic Qualifiers: Hypertension type: essential hypertension Qualified Code(s): I10 - Essential (primary) hypertension Comment: Still severely elevated, adding Hydralazing 50mg TID, BP dropped after morning dose, 190s --> 160s now. (3) Diabetes Code(s): E11.9 - TYPE 2 DIABETES MELLITUS WITHOUT COMPLICATIONS Status: Chronic Qualifiers: Diabetes mellitus type: type 2 Comment: good control (4) Smoking Code(s): F17.200 - NICOTINE DEPENDENCE, UNSPECIFIED, UNCOMPLICATED Status: Chronic (5) Acute renal failure Status: Resolved - Plan cont current plan of care, PT/OT, DVT proph w/SCDs Accepted to [facility] -: BP improved with Hydralazine, stable for d/c, can titrate up further -: as needed as outpatient. * . - Discharge Day Encounter end time: 11:20
[2018-12-12] MEDS: Losartan 25 MG TAB PO SCH (08:47)
[2018-12-12] MEDS: Carbidopa/Levodopa 25-250 mg Tablet PO SCH ×2 (08:48→15:28)
[2018-12-12] MEDS: Amlodipine 5 MG TAB PO SCH (08:48)
[2018-12-12] MEDS: Metoprolol Tartrate 50 MG TAB PO SCH (08:49)
[2018-12-12] MEDS: hydrALAZINE 25 MG TAB PO SCH ×2 (08:49→16:12)
[2018-12-12] MEDS ORDERED: Hydrochlorothiazide 25 MG TAB PO SCH (09:00)
--- NOTE | 2018-12-12 13:48 | DIS ---
DATE OF ADMISSION: 12/07/2018 DATE OF DISCHARGE: 12/12/2018 PRIMARY CARE PHYSICIAN: [facility] in [place]. REASON FOR ADMISSION: Intracranial hemorrhage. DIAGNOSES AT DISCHARGE: 1. Hemorrhagic stroke. 2. Hypertension. 3. Diabetes mellitus type 2. 4. Tobacco abuse. 5. Acute renal failure, resolved. PROCEDURES: CT of the brain showing acute 2.5 cm intraaxial hematoma in the upper aspect of the right cerebellar hemisphere. Followup CT is showing a stable, maxing out 2.7 cm. Initial admission team neurosurgery, Dr. Morelos. CONSULTATIONS: 1. [facility] service now by primary team. 2. Pulmonology, Dr. Luna. SUMMARY OF HOSPITAL COURSE: This is a 68-year-old male with a known history of uncontrolled hypertension and daily smoking. He has been having some left-sided weakness and occasional falls progressing over time. In the ER, CT was found to have right cerebellar hemorrhage without significant mass effect. He was admitted to the Neurosurgery Service. He had tight control of his blood pressures and monitoring. He had no progression of the hemorrhage. Eventually, he was weaned off Cardene drip and transferred to the stroke floor. The patient did physical therapy, speech therapy, and occupational therapy while in the hospital. He did have significantly elevated blood pressures after weaning off the antihypertensive drips. He had increase in his oral medications and on the day of discharge, hydralazine 50 mg 3 times a day was added, which brought his systolic down to the 160s. He was doing well with physical therapy and is being transferred to [facility]. Of note, the patient did have a bump in his creatinine soon after admission from 1.16 up to 1.71, this resolved down to 1.07 at discharge. DISCHARGE MANAGEMENT: Discharged to the [facility] in [place]. ACTIVITY: As tolerated. DIET: Healthy heart low-sodium diet. THERAPY: Occupational, physical, and speech therapy. FOLLOWUP: Follow up with [facility] after rehab stay and follow up with Dr. Morelos in 1 month. DISCHARGE MEDICATIONS: 1. Amlodipine 10 mg daily. 2. Acetaminophen as needed. 3. Dulcolax as needed. 4. Carbidopa/levodopa 25/100 mg 3 times a day. 5. Vitamin D3 of 1000 units daily. 6. Hydralazine 50 mg 3 times a day. 7. Hydrochlorothiazide 25 mg daily. 8. Levothyroxine 50 mcg daily. 9. Losartan 50 mg twice a day. 10. Metoprolol tartrate 50 mg twice a day. 11. Mirtazapine 30 mg at night. 12. Protonix 40 mg daily. Arranging the details of this discharge took 32 minutes. Job ID: [id number]
[2018-12-12] MEDS ORDERED: Carbidopa/Levodopa 25-100 mg Tablet PO SCH (15:00)
[2018-12-12 16:03] VITALS: TEMP 98.3
--- NOTE | 2018-12-12 16:11 | PRG ---
DATE OF SERVICE: 12/12/2018 This is Kanu Pan PA-C dictating a report for Dawit Morelos MD. This is a 10-minute subsequent patient evaluation, in which greater than 50% of the exam was spent in counseling and coordinating the patient's care. Remainder of the exam was spent in review of the patient's medical records and formulation of treatment plan. Mr. Cuadra is hospital day #5, having sustained a right cerebellar hemorrhage secondary to hypertension. The patient is very frustrated that he is still in the hospital. He denies headache. He has stable left upper and lower extremity weakness and this has been stable since his hospital stay. He is oriented to person, place, and time. Main issue now is blood pressure control and our medical colleagues are attempting to control this with oral medications. Ideally, his systolic blood pressure would remain less than 150 and it is likely that the patient has longstanding hypertension at baseline. The patient should continue to work with therapies and we will provide followup appointments in our clinic and continue to follow the patient at this time. Please call with any changes in the patient's neurologic status, otherwise blood pressure control is paramount at this time. Job ID: [id number]
[2018-12-12 17:05] VITALS: BP 158/66
== END 2018-12-12 17:23 | DRG 65 ==
LOC: ERS 12:52 → CCU 16:35 → 2SE 12-10 15:35
PROVIDERS: ADMIT Surgery; ATTEND Surgery
DX: I61.4 Nontraumatic intracerebral hemorrhage in cerebellum (principal); G81.94 Hemiplegia, unspecified affecting left nondominant side; N17.9 Acute kidney failure, unspecified; E11.9 Type 2 diabetes mellitus without complications; F17.210 Nicotine dependence, cigarettes, uncomplicated; E03.9 Hypothyroidism, unspecified; E78.00 Pure hypercholesterolemia, unspecified; I50.9 Heart failure, unspecified; R29.712 NIHSS score 12; R47.81 Slurred speech; I11.0 Hypertensive heart disease with heart failure; F41.9 Anxiety disorder, unspecified; F43.10 Post-traumatic stress disorder, unspecified; Z79.899 Other long term (current) drug therapy; Z95.5 Presence of coronary angioplasty implant and graft
CPT/HCPCS: 36415; 36416; 70450; 71045; 80048; 80053; 81003; 81015; 82550; 83036; 84484; 85025; 85610; 85730; 93005; 96365; 96366; C9113; J0360; J2405; J7050

== ENCOUNTER 2020-08-27 15:48 | Emergency (ER) | payer MEDICARE, OTHER ==
[2020-08-27 16:26] LABS: Bilirubin Negative (Negative); Blood, Urine Trace (Negative); Clarity Turbid (Clear); Glucose, Urine (Dipstick) Normal (Negative); Ketone, Urine Negative (Negative); Leukocyte Negative Leu/uL (Negative); Nitrite Negative (Negative); Protein, Urine (Dipstick) 600 mg/dL (Neg-Trace); RBC/HPF 0-3 HPF (0-3); Specific Gravity, Urine 1.025 (1.002-1.036); Squamous Epithelial 0-3 HPF (0-3); Urobilinogen 3 mg/dL (Less than 2)
[2020-08-27 16:33] LABS: Bacteria/HPF 1+ HPF (None Seen); Sperm/HPF Rare HPF (None Seen)
[2020-08-27 16:39] LABS: #Eosinphils 0.1 thou/uL (0.0-0.7); #Lymphocytes 1.2 thou/uL (1.20-3.40); #Monocytes 0.7 thou/uL (0.11-0.59); #Neutrophils 10.6 thou/uL (1.40-6.50); %Basophils 0.3 % (0.0-1.0); %Eosinophils 0.4 % (0.0-10.0); %Lymphocytes 9.4 % (21.0-51.0); %Monocytes 5.6 % (0.0-10.0); %Neutrophils 84.2 % (42.0-75.0); Hemoglobin 9.7 g/dL (14.0-18.0); Mean Corpuscular HGB CONC 32.3 g/dL (32.0-36.0); Mean Corpuscular Volume 86.7 fL (78.0-98.0); Mean Platelet Volume 8.3 fL (7.4-10.4); Platelet Count 388 thou/uL (130-400); RBC Distribution Width 14.3 % (11.5-14.5); Red Blood Cell (RBC) Count 3.46 mill/uL (4.70-6.10); White Blood Cell (WBC) Count 12.6 thou/uL (4.8-10.8)
--- NOTE | 2020-08-27 16:49 | RAD ---
RADIOGRAPH CHEST 1 VIEW: DATE: 08/27/2020 TIME: 4:37 PM HISTORY: 70-year-old male with altered mental status. Concern for aspiration. COMPARISON: 03/17/2020 FINDINGS: New airspace opacity at right lower lung zone. New diffuse haziness throughout the entire left lung. No cardiomegaly or pneumothorax. IMPRESSION: 1) right lower lung zone infiltrate: Pneumonia versus aspiration pneumonitis. 2) diffuse haziness of the entire left lung: Technical artifact versus unilateral diffuse mild inters titial infiltrates.
[2020-08-27 17:02] LABS: Anion Gap 15 mmol/L (10-20); BUN (Urea Nitrogen) 32 mg/dL (8.4-25.7); Calc. Creatinine Clearance 0 mL/min (70-130); Carbon Dioxide 25 mmol/L (23-31); Chloride 112 mmol/L (98-107); Potassium 3.8 mmol/L (3.5-5.1); Sodium 148 mmol/L (136-145)
[2020-08-27 17:03] LABS: ALT (SGPT) Less than 7 U/L (8-55); AST (SGOT) 32 U/L (5-34); Albumin 2.7 g/dL (3.4-4.8); Alkaline Phosphatase 88 U/L (40-110); Bilirubin, Total 0.3 mg/dL (0.2-1.2); Calcium 7.6 mg/dL (7.8-10.44); Globulin 4.7 g/dL (2.4-3.5); Glucose 128 mg/dL (80-115); Protein, Total 7.4 g/dL (5.8-8.1)
[2020-08-27] MEDS ORDERED: Cefepime 1 GM VIAL ONE (17:04)
[2020-08-27] MEDS ORDERED: Levofloxacin 500 mg/D5W 100 ml Premix Bag ONE (17:04)
[2020-08-27 17:22] LABS: CKMB 1.5 ng/mL (0-6.6)
--- NOTE | 2020-08-27 17:48 | CT ---
CT BRAIN NONCONTRAST: DATE: 08/27/2020 HISTORY: 70-year-old male with fever FINDINGS: There is no evidence of acute intra-axial or extra-axial hemorrhage. There is no midline shift or any other mass effect. There is no extra-axial fluid collection. There is no evidence of obstructive hydrocephalus. Calvarium is intact. There is diffuse brain parenchymal volume loss. There are low att enuation areas in the white matter. These are nonspecific, but in a patient of this age, they are probably chronic ischemic white matter changes due to microvascular atherosclerosis. There is moderat e to severe dilation of the fourth ventricle on an ex vacuo basis due to especially severe atrophy of the bambi, midbrain, and bilateral middle cerebellar peduncles. There is asymmetrical soft tissue t hickening in the right side of the posterior aspect of the nasopharynx. IMPRESSION: 1) No acute intracranial findings. 2) diffuse involutional changes and chronic ischemic white matter changes. 3) especially high-grade atrophy of the brainstem. This raises the possibility of MSA (multisystem at formerly [facility]). 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 Recommend otolaryngology cons ultation on nonemergent basis.
--- NOTE | 2020-08-27 17:54 | CT ---
CT ANGIOGRAM THORAX WITH CONTRAST: (CTA pulmonary angiogram) DATE: 08/27/2020 HISTORY: 70-year-old COVID-19 positive male with fever TECHNIQUE: IV injection of iodinated contrast. Scan acquisition timing attempted to coincide with iodinated contrast bolus reaching maximal density in pulmonary arteries. 3-D MIP reconstructions. FINDINGS: There are multifocal moderate sized patchy confluent infiltrates in the bilateral upper lobes, bilate ral lower lobes, and to a much lesser degree right middle lobe. Much of the infiltrates are groundglass. Other areas have early mosaic patterns. An infiltrate in the right lower lobe is a conso lidation. There is noncalcified nonspecific moderate mediastinal and bilateral hilar lymphadenopathy. No pulmonary thromboembolism. No thoracic aortic aneurysm or dissection. No pericardial effusion. Tiny left pleural effusion. Multiple calcified gallstones. IMPRESSION: 1) positive for bilateral COVID-19 pneumonia. 2) cholelithiasis. 3) no pulmonary thromboembolism.
[2020-08-27 19:14] LABS: Troponin I 0.036 ng/mL (< 0.028)
== END 2020-08-27 20:25 ==
LOC: ERS 15:48
DX: U07.1 COVID-19 (principal); J12.89 Other viral pneumonia; L89.159 Pressure ulcer of sacral region, unspecified stage; E03.9 Hypothyroidism, unspecified; E78.5 Hyperlipidemia, unspecified; E78.00 Pure hypercholesterolemia, unspecified; E11.9 Type 2 diabetes mellitus without complications; E78.1 Pure hyperglyceridemia; I11.0 Hypertensive heart disease with heart failure; I50.9 Heart failure, unspecified; D64.9 Anemia, unspecified; F17.210 Nicotine dependence, cigarettes, uncomplicated; I25.2 Old myocardial infarction
CPT/HCPCS: 36415; 51701; 70450; 71045; 71275; 80053; 81003; 81015; 82553; 83605; 84484; 85025; 87040; 87086; 87149; 93005; 96365; 96366; 96367; J0692; J1956

== ENCOUNTER 2021-08-04 10:20 | Inpatient (IN) | payer MEDICARE, MEDICAID ==
[2021-08-04 12:03] LABS: Hemoglobin 6.5 g/dL (14.0-18.0); Mean Corpuscular Hemoglobin 22.6 pg (27.0-31.0); Mean Corpuscular Volume 75.3 fL (78.0-98.0); Mean Platelet Volume 8.6 fL (7.4-10.4); Platelet Count 432 thou/uL (130-400); RBC Distribution Width 17.4 % (11.5-14.5); Red Blood Cell (RBC) Count 2.87 mill/uL (4.70-6.10); White Blood Cell (WBC) Count 7.8 thou/uL (4.8-10.8)
[2021-08-04 12:04] LABS: ALT (SGPT) 7 U/L (8-55); AST (SGOT) 11 U/L (5-34); Albumin 2.8 g/dL (3.4-4.8); Alkaline Phosphatase 45 U/L (40-110); Anion Gap 11 mmol/L (10-20); BUN (Urea Nitrogen) 25 mg/dL (8.4-25.7); Bilirubin, Total Less than 0.2 mg/dL (0.2-1.2); Calc. Creatinine Clearance 0 mL/min (70-130); Calcium 8.6 mg/dL (7.8-10.44); Carbon Dioxide 25 mmol/L (23-31); Chloride 110 mmol/L (98-107); Globulin 5.3 g/dL (2.4-3.5); Glucose 137 mg/dL (83-110); Potassium 4.2 mmol/L (3.5-5.1); Protein, Total 8.1 g/dL (5.8-8.1); Sodium 142 mmol/L (136-145)
[2021-08-04 12:12] LABS: Band 2 % (5-11); Eosinophils 4 % (0-10); Hypochromia SLIGHT = 6-15 cells (100X) (0-5/hpf); Lymphocytes 18 % (21-51); MDiff Complete? YES; Microcytosis SLIGHT = 6-15 cells (100X) (0-5/hpf); Monocytes 12 % (0-10); Neutrophil 63 % (42-75); Platelet Morphology Comment Appears Increased; Polychromasia SLIGHT = 2-3 cells (100X) (0-2/hpf)
[2021-08-04] MEDS ORDERED: Acetaminophen 325 MG TAB PO PRN (16:07)
[2021-08-04] MEDS ORDERED: Ondansetron PF 4 MG/2 ML Vial IVP PRN (16:07)
[2021-08-04 17:13] VITALS: BMI 23.7
[2021-08-04 21:19] LABS: Hemoglobin 7.7 g/dL (14.0-18.0)
[2021-08-04] MEDS: Carbidopa/Levodopa 25-100 mg Tablet PO SCH (22:00)
[2021-08-04] MEDS: Docusate 100 MG CAP PO SCH (22:00)
[2021-08-04] MEDS: Tamsulosin HCl 0.4 MG CAP PO SCH (22:00)
[2021-08-04] MEDS: hydrALAZINE 25 MG TAB PO SCH (22:00)
[2021-08-04] MEDS: Mirtazapine 15 MG TAB PO SCH (22:01)
[2021-08-05] MEDS: Levothyroxine Sodium 50 MCG TAB PO SCH (05:45)
[2021-08-05 06:55] LABS: Hemoglobin 7.8 g/dL (14.0-18.0); Mean Corpuscular HGB CONC 30.8 g/dL (32.0-36.0); Mean Corpuscular Volume 77.9 fL (78.0-98.0); Mean Platelet Volume 8.5 fL (7.4-10.4); Platelet Count 418 thou/uL (130-400); RBC Distribution Width 19.6 % (11.5-14.5); Red Blood Cell (RBC) Count 3.22 mill/uL (4.70-6.10); White Blood Cell (WBC) Count 6.4 thou/uL (4.8-10.8)
[2021-08-05 06:56] LABS: #Basophils 0.1 thou/uL (0.0-0.2); #Eosinphils 0.2 thou/uL (0.0-0.7); #Lymphocytes 1.1 thou/uL (1.20-3.40); #Monocytes 0.8 thou/uL (0.11-0.59); #Neutrophils 4.3 thou/uL (1.40-6.50); %Lymphocytes 16.5 % (21.0-51.0); %Monocytes 12.8 % (0.0-10.0); %Neutrophils 66.8 % (42.0-75.0)
[2021-08-05 07:11] LABS: Anion Gap 11 mmol/L (10-20); BUN (Urea Nitrogen) 19 mg/dL (8.4-25.7); Calc. Creatinine Clearance 80 mL/min (70-130); Calcium 8.6 mg/dL (7.8-10.44); Carbon Dioxide 24 mmol/L (23-31); Chloride 107 mmol/L (98-107); Glucose 75 mg/dL (83-110); Iron 33 ug/dL (65-175); Iron Binding Capacity, Total 190 mcg/dL (261-462); Potassium 4.2 mmol/L (3.5-5.1); Sodium 138 mmol/L (136-145)
[2021-08-05 07:34] LABS: Ferritin 61.78 ng/mL (22-322); Thyroid Stimulating Hormone 2.6236 uIU/mL (0.35-4.94)
[2021-08-05] MEDS: Carbidopa/Levodopa 25-100 mg Tablet PO SCH ×3 (08:07→20:33)
[2021-08-05] MEDS: Amlodipine 5 MG TAB PO SCH (08:08)
[2021-08-05] MEDS: Cholecalciferol 1,000 UNITS (25 MCG) TAB PO SCH (08:08)
[2021-08-05] MEDS: Docusate 100 MG CAP PO SCH ×2 (08:08→20:32)
[2021-08-05] MEDS: hydrALAZINE 25 MG TAB PO SCH ×3 (08:09→20:31)
[2021-08-05] MEDS ORDERED: Iron Sucrose Complex 200 MG in Sodium Chloride 0.9% 100 ML IVPB SCH (10:15)
[2021-08-05] MEDS ORDERED: Iron, Sodium Ferric Gluconate 250 MG in Sodium Chloride 0.9% 250 ML 250 ML IVPB SCH (11:00)
[2021-08-05 12:05] LABS: SARS-CoV-2 PCR by NAA Not Detected (NotDetected)
[2021-08-05] MEDS: Tamsulosin HCl 0.4 MG CAP PO SCH (20:31)
[2021-08-05] MEDS: Mirtazapine 15 MG TAB PO SCH (20:32)
[2021-08-06] MEDS: Levothyroxine Sodium 50 MCG TAB PO SCH ×2 (05:25→19:57)
[2021-08-06] MEDS ORDERED: Dextrose 50% Abboject 50 ML SYRINGE SLOW IVP PRN (08:57)
[2021-08-06] MEDS ORDERED: Insulin Regular 300 UNITS/3 ML VIAL SC PRN ×2 (08:57)
[2021-08-06] MEDS ORDERED: Dextrose 5% in Water 1,000 ML IV PRN (08:57)
[2021-08-06] MEDS: Carbidopa/Levodopa 25-100 mg Tablet PO SCH ×3 (09:09→19:56)
[2021-08-06] MEDS: Docusate 100 MG CAP PO SCH ×2 (09:09→19:56)
[2021-08-06] MEDS: Cholecalciferol 1,000 UNITS (25 MCG) TAB PO SCH (09:09)
[2021-08-06] MEDS: hydrALAZINE 25 MG TAB PO SCH ×3 (09:10→19:56)
[2021-08-06] MEDS: Amlodipine 5 MG TAB PO SCH (09:10)
[2021-08-06] MEDS: Dextrose 5 % And 0.9 % NaCl 1,000 ML IV SCH (12:55)
[2021-08-06] MEDS ORDERED: GoLYTELY 4,000 ml Bottle PO SCH (15:00)
[2021-08-06] MEDS: Tamsulosin HCl 0.4 MG CAP PO SCH (19:56)
[2021-08-06] MEDS: Mirtazapine 15 MG TAB PO SCH (19:56)
[2021-08-07] MEDS: Dextrose 5 % And 0.9 % NaCl 1,000 ML IV SCH (05:46)
[2021-08-07] MEDS: Carbidopa/Levodopa 25-100 mg Tablet PO SCH ×3 (08:34→20:19)
[2021-08-07] MEDS: Amlodipine 5 MG TAB PO SCH (08:34)
[2021-08-07] MEDS: hydrALAZINE 20 MG/ML VIAL SLOW IVP PRN (08:34)
[2021-08-07] MEDS: hydrALAZINE 25 MG TAB PO SCH ×3 (08:35→20:19)
[2021-08-07] MEDS: Docusate 100 MG CAP PO SCH ×2 (08:35→20:19)
[2021-08-07] MEDS: Cholecalciferol 1,000 UNITS (25 MCG) TAB PO SCH (08:35)
[2021-08-07] MEDS ORDERED: PROPOFOL 200 MG/20 ML VIAL ONE (12:08)
[2021-08-07 14:56] LABS: Hemoglobin 7.7 g/dL (14.0-18.0); Mean Corpuscular HGB CONC 30.6 g/dL (32.0-36.0); Mean Corpuscular Hemoglobin 23.7 pg (27.0-31.0); Mean Corpuscular Volume 77.5 fL (78.0-98.0); Mean Platelet Volume 8.1 fL (7.4-10.4); Platelet Count 411 thou/uL (130-400); RBC Distribution Width 20.5 % (11.5-14.5); Red Blood Cell (RBC) Count 3.23 mill/uL (4.70-6.10); White Blood Cell (WBC) Count 6.3 thou/uL (4.8-10.8)
[2021-08-07 14:57] LABS: #Eosinphils 0.1 thou/uL (0.0-0.7); #Lymphocytes 1.4 thou/uL (1.20-3.40); #Monocytes 0.9 thou/uL (0.11-0.59); #Neutrophils 3.8 thou/uL (1.40-6.50); %Basophils 0.7 % (0.0-1.0); %Eosinophils 2.3 % (0.0-10.0); %Lymphocytes 22.3 % (21.0-51.0); %Monocytes 14.7 % (0.0-10.0)
[2021-08-07 15:01] LABS: ALT (SGPT) 9 U/L (8-55); AST (SGOT) 8 U/L (5-34); Albumin 2.5 g/dL (3.4-4.8); Alkaline Phosphatase 41 U/L (40-110); Anion Gap 12 mmol/L (10-20); BUN (Urea Nitrogen) 13 mg/dL (8.4-25.7); Bilirubin, Total 0.2 mg/dL (0.2-1.2); Calc. Creatinine Clearance 85 mL/min (70-130); Calcium 8.5 mg/dL (7.8-10.44); Carbon Dioxide 22 mmol/L (23-31); Chloride 108 mmol/L (98-107); Globulin 5.1 g/dL (2.4-3.5); Glucose 79 mg/dL (83-110); Magnesium 1.8 mg/dL (1.6-2.6); Phosphorus 2.9 mg/dL (2.3-4.7); Protein, Total 7.6 g/dL (5.8-8.1); Sodium 138 mmol/L (136-145)
[2021-08-07] MEDS ORDERED: Magnesium Sulfate 2 GM in Sodium Chloride 0.9% 100 ML IVPB SCH (17:15)
[2021-08-07] MEDS ORDERED: Magnesium 2 GM/50 ML 2 GM in Premix Bag 1 BAG IVPB SCH (17:30)
[2021-08-07] MEDS ORDERED: FLU VACC QS2021-22(65YR UP)/PF 240 MCG/0.7 ML SYRINGE IM ONE (18:00)
[2021-08-07] MEDS: Pantoprazole 40 MG VIAL IVP SCH (20:18)
[2021-08-07] MEDS: Tamsulosin HCl 0.4 MG CAP PO SCH (20:19)
[2021-08-07] MEDS: Mirtazapine 15 MG TAB PO SCH (20:19)
[2021-08-08] MEDS: hydrALAZINE 20 MG/ML VIAL SLOW IVP PRN (01:49)
[2021-08-08] MEDS: Dextrose 5 % And 0.9 % NaCl 1,000 ML IV SCH (04:03)
[2021-08-08] MEDS: Levothyroxine Sodium 50 MCG TAB PO SCH (05:52)
[2021-08-08] MEDS: Pantoprazole 40 MG VIAL IVP SCH (08:29)
[2021-08-08] MEDS: Docusate 100 MG CAP PO SCH (09:00)
[2021-08-08] MEDS: Amlodipine 5 MG TAB PO SCH (13:42)
[2021-08-08] MEDS: hydrALAZINE 25 MG TAB PO SCH ×3 (13:42→21:17)
[2021-08-08] MEDS: Cholecalciferol 1,000 UNITS (25 MCG) TAB PO SCH (13:42)
[2021-08-08] MEDS: Carbidopa/Levodopa 25-100 mg Tablet PO SCH ×3 (13:43→21:18)
[2021-08-08] MEDS: Tamsulosin HCl 0.4 MG CAP PO SCH (21:17)
[2021-08-08] MEDS: Mirtazapine 15 MG TAB PO SCH (21:17)
[2021-08-08] MEDS: Docusate Sodium 100 MG/10 ML UDCUP PO SCH (21:17)
[2021-08-09] MEDS: Dextrose 5 % And 0.9 % NaCl 1,000 ML IV SCH (03:00)
[2021-08-09] MEDS: Levothyroxine Sodium 50 MCG TAB PO SCH (05:35)
[2021-08-09 08:20] VITALS: BP 154/65; TEMP 98.2
[2021-08-09] MEDS: Amlodipine 5 MG TAB PO SCH (09:46)
[2021-08-09] MEDS: hydrALAZINE 25 MG TAB PO SCH (09:46)
[2021-08-09] MEDS: Carbidopa/Levodopa 25-100 mg Tablet PO SCH (09:46)
[2021-08-09] MEDS: Docusate Sodium 100 MG/10 ML UDCUP PO SCH (09:47)
[2021-08-09] MEDS: Cholecalciferol 1,000 UNITS (25 MCG) TAB PO SCH (09:47)
== END 2021-08-09 16:17 | DRG 812 ==
LOC: ERS 10:20 → T4-A 14:31 → OBSVTOIN 08-06 08:39
PROVIDERS: ADMIT Internal Medicine; ATTEND Internal Medicine
PROC: 30233N1 Transfusion of Nonautologous Red Blood Cells into Peripheral Vein, Percutaneous Approach (ICD-10-PCS; principal; 2021-08-06)
PROC: 0DJ08ZZ Inspection of Upper Intestinal Tract, Via Natural or Artificial Opening Endoscopic (ICD-10-PCS; 2021-08-07)
DX: D50.9 Iron deficiency anemia, unspecified (principal); E44.0 Moderate protein-calorie malnutrition; I50.32 Chronic diastolic (congestive) heart failure; Z20.822 Contact with and (suspected) exposure to COVID-19; E03.9 Hypothyroidism, unspecified; E78.5 Hyperlipidemia, unspecified; I11.0 Hypertensive heart disease with heart failure; G20 Parkinson's disease; F02.80 Dementia in other diseases classified elsewhere, unspecified severity, without behavioral disturbance, psychotic disturbance, mood disturbance, and anxiety; R13.12 Dysphagia, oropharyngeal phase; K80.20 Calculus of gallbladder without cholecystitis without obstruction; E11.649 Type 2 diabetes mellitus with hypoglycemia without coma; I25.2 Old myocardial infarction; Z79.890 Hormone replacement therapy; Z79.899 Other long term (current) drug therapy; Z68.23 Body mass index [BMI] 23.0-23.9, adult; Z88.0 Allergy status to penicillin
CPT/HCPCS: 36415; 36416; 36430; 71045; 74177; 74220; 80048; 80053; 82607; 82728; 82746; 83540; 83550; 83735; 84100; 84443; 84484; 85025; 86850; 86900; 86901; 93005; C9113; G0378; J0360; J2704; J2916; J3475; J7042; J7050; P9016; U0003; U0005

== ENCOUNTER 2021-08-29 17:42 | Inpatient (IN) | payer MEDICARE, MEDICAID ==
[~2021-08-29 17:42] MED LIST: Iopamidol-370 76% 500 ML 1 ML ONE
[2021-08-29 18:22] LABS: Hemoglobin 8.3 g/dL (14.0-18.0); Mean Corpuscular HGB CONC 31.1 g/dL (32.0-36.0); Mean Corpuscular Hemoglobin 23.9 pg (27.0-31.0); Mean Corpuscular Volume 76.6 fL (78.0-98.0); Mean Platelet Volume 9.2 fL (7.4-10.4); Platelet Count 398 thou/uL (130-400); RBC Distribution Width 22.2 % (11.5-14.5); Red Blood Cell (RBC) Count 3.49 mill/uL (4.70-6.10); White Blood Cell (WBC) Count 20.8 thou/uL (4.8-10.8)
[2021-08-29 18:39] LABS: Anisocytosis MODERATE=16-30 cells (100X) (0-5/hpf); Band 3 % (5-11); Hypochromia SLIGHT = 6-15 cells (100X) (0-5/hpf); Lymphocytes 6 % (21-51); MDiff Complete? YES; Microcytosis SLIGHT = 6-15 cells (100X) (0-5/hpf); Monocytes 9 % (0-10); Neutrophil 82 % (42-75); Ovalocytes SLIGHT = 2-5 cells (100X) (0-1/hpf); Platelet Morphology Comment Appears Adequate; Polychromasia SLIGHT = 2-3 cells (100X) (0-2/hpf); Target Cells SLIGHT = 2-5 cells (100X) (0-1/hpf)
[2021-08-29 18:40] LABS: ALT (SGPT) 19 U/L (8-55); AST (SGOT) 26 U/L (5-34); Albumin 2.4 g/dL (3.4-4.8); Alkaline Phosphatase 97 U/L (40-110); Anion Gap 11 mmol/L (10-20); BUN (Urea Nitrogen) 36 mg/dL (8.4-25.7); Bilirubin, Total 0.2 mg/dL (0.2-1.2); Calc. Creatinine Clearance 0 mL/min (70-130); Calcium 8.6 mg/dL (7.8-10.44); Carbon Dioxide 27 mmol/L (23-31); Chloride 115 mmol/L (98-107); Globulin 5.8 g/dL (2.4-3.5); Glucose 114 mg/dL (83-110); Potassium 4.3 mmol/L (3.5-5.1); Protein, Total 8.2 g/dL (5.8-8.1); Sodium 149 mmol/L (136-145)
[2021-08-29] MEDS ORDERED: Cefepime 2 GM VIAL ONE (19:23)
[2021-08-29 19:34] LABS: Lipase 22 U/L (8-78); Magnesium 2.5 mg/dL (1.6-2.6)
[2021-08-29] MEDS ORDERED: Vancomycin 1 GM/200 ML BAG ONE (20:09)
[2021-08-29 21:04] LABS: SARS-CoV-2 NAA Rapid Test Not Detected (NotDetected)
[2021-08-29 23:29] VITALS: BMI 18.1
[2021-08-30] MEDS ORDERED: Ondansetron PF 4 MG/2 ML Vial IVP PRN (09:20)
[2021-08-30] MEDS ORDERED: Acetaminophen 650 MG Suppository PR PRN (09:20)
[2021-08-30] MEDS ORDERED: hydrALAZINE 20 MG/ML VIAL SLOW IVP PRN (09:36)
[2021-08-30 10:20] LABS: #Eosinphils 0.1 thou/uL (0.0-0.7); #Lymphocytes 1.1 thou/uL (1.20-3.40); #Monocytes 1.3 thou/uL (0.11-0.59); #Neutrophils 16.8 thou/uL (1.40-6.50); %Basophils 0.1 % (0.0-1.0); %Eosinophils 0.3 % (0.0-10.0); %Lymphocytes 5.8 % (21.0-51.0); %Monocytes 6.7 % (0.0-10.0); %Neutrophils 87.1 % (42.0-75.0); Hemoglobin 9.1 g/dL (14.0-18.0); Mean Corpuscular Hemoglobin 23.9 pg (27.0-31.0); Mean Corpuscular Volume 77.2 fL (78.0-98.0); Mean Platelet Volume 9.5 fL (7.4-10.4); Platelet Count 406 thou/uL (130-400); RBC Distribution Width 22.4 % (11.5-14.5); Red Blood Cell (RBC) Count 3.79 mill/uL (4.70-6.10); White Blood Cell (WBC) Count 19.3 thou/uL (4.8-10.8)
[2021-08-30 10:43] LABS: Anion Gap 14 mmol/L (10-20); BUN (Urea Nitrogen) 33 mg/dL (8.4-25.7); Calc. Creatinine Clearance 51 mL/min (70-130); Calcium 8.8 mg/dL (7.8-10.44); Carbon Dioxide 25 mmol/L (23-31); Chloride 114 mmol/L (98-107); Glucose 97 mg/dL (83-110); Potassium 3.9 mmol/L (3.5-5.1); Sodium 149 mmol/L (136-145)
[2021-08-30 11:04] LABS: INR-International Normal Ratio 1.2
[2021-08-30] MEDS: Dextrose 5% in Water 1,000 ML IV SCH ×2 (11:04→23:08)
[2021-08-30 11:05] LABS: PTT 38.6 sec (22.9-36.1)
[2021-08-30 16:59] LABS: Anion Gap 11 mmol/L (10-20); BUN (Urea Nitrogen) 33 mg/dL (8.4-25.7); Calc. Creatinine Clearance 51 mL/min (70-130); Calcium 8.8 mg/dL (7.8-10.44); Carbon Dioxide 27 mmol/L (23-31); Chloride 113 mmol/L (98-107); Glucose 113 mg/dL (83-110); Potassium 3.9 mmol/L (3.5-5.1); Sodium 147 mmol/L (136-145)
[2021-08-30] MEDS: Cefepime 2 GM in Sodium Chloride 0.9% 100 ML IVPB SCH (20:16)
[2021-08-30] MEDS: Vancomycin 1 GM in Premix Bag 1 BAG IVPB SCH (22:00)
[2021-08-31] MEDS: Dextrose 5% in Water 1,000 ML IV SCH ×2 (03:46→17:24)
[2021-08-31 07:22] LABS: #Eosinphils 0.1 thou/uL (0.0-0.7); #Lymphocytes 1.1 thou/uL (1.20-3.40); #Monocytes 1.6 thou/uL (0.11-0.59); #Neutrophils 14.7 thou/uL (1.40-6.50); %Basophils 0.1 % (0.0-1.0); %Eosinophils 0.7 % (0.0-10.0); %Lymphocytes 6.3 % (21.0-51.0); %Monocytes 9.2 % (0.0-10.0); %Neutrophils 83.7 % (42.0-75.0); Hemoglobin 8.5 g/dL (14.0-18.0); Mean Corpuscular HGB CONC 30.5 g/dL (32.0-36.0); Mean Corpuscular Hemoglobin 23.8 pg (27.0-31.0); Mean Corpuscular Volume 78.2 fL (78.0-98.0); Mean Platelet Volume 9.5 fL (7.4-10.4); Platelet Count 380 thou/uL (130-400); RBC Distribution Width 21.9 % (11.5-14.5); Red Blood Cell (RBC) Count 3.57 mill/uL (4.70-6.10); White Blood Cell (WBC) Count 17.6 thou/uL (4.8-10.8)
[2021-08-31] MEDS ORDERED: Polyethylene Glycol 3350 17 GM Packet PO PRN (07:24)
[2021-08-31 07:39] LABS: Anion Gap 11 mmol/L (10-20); BUN (Urea Nitrogen) 30 mg/dL (8.4-25.7); Calc. Creatinine Clearance 56 mL/min (70-130); Calcium 8.8 mg/dL (7.8-10.44); Carbon Dioxide 26 mmol/L (23-31); Chloride 110 mmol/L (98-107); Glucose 140 mg/dL (83-110); Potassium 3.8 mmol/L (3.5-5.1); Sodium 143 mmol/L (136-145)
[2021-08-31] MEDS ORDERED: Levothyroxine Sodium 50 MCG TAB PO SCH (08:15)
[2021-08-31] MEDS: Pantoprazole 40 MG VIAL IVP SCH (08:50)
[2021-08-31] MEDS: Cefepime 2 GM in Sodium Chloride 0.9% 100 ML IVPB SCH ×2 (08:50→21:50)
[2021-08-31] MEDS: Ferrous Sulfate 325 MG TAB PO SCH (08:51)
[2021-08-31] MEDS: Carbidopa/Levodopa 25-100 mg Tablet PO SCH ×3 (08:51→21:38)
[2021-08-31] MEDS: Docusate 100 MG CAP PO SCH ×2 (08:51→21:38)
[2021-08-31] MEDS: Multivitamin W/ Minerals 1 TAB PO SCH (08:51)
[2021-08-31] MEDS: Amlodipine 10 MG TAB PO SCH (08:51)
[2021-08-31 20:42] LABS: Vancomycin, Trough 12.3 ug/mL
[2021-08-31] MEDS ORDERED: Cefepime 1 GM VIAL ONE (21:09)
[2021-08-31] MEDS ORDERED: Cefepime 2 GM in Sodium Chloride 0.9% 100 ML IVPB SCH (21:30)
[2021-08-31] MEDS: Mirtazapine 30 MG TAB PO SCH (21:38)
[2021-08-31] MEDS ORDERED: VANCOMYCIN 1.25 GM/250 ML BAG 1.25 GM in Premix Bag 1 BAG IVPB SCH (22:00)
[2021-08-31] MEDS: Vancomycin 1 GM in Premix Bag 1 BAG IVPB SCH (22:27)
[2021-08-31] MEDS ORDERED: Acetaminophen 325 MG TAB PO PRN (22:28)
[2021-09-01] MEDS: Levothyroxine Sodium 50 MCG TAB PO SCH (05:38)
[2021-09-01] MEDS: Ferrous Sulfate 325 MG TAB PO SCH (08:59)
[2021-09-01] MEDS: Amlodipine 10 MG TAB PO SCH (08:59)
[2021-09-01] MEDS: Multivitamin W/ Minerals 1 TAB PO SCH (08:59)
[2021-09-01] MEDS: Docusate 100 MG CAP PO SCH ×2 (08:59→20:22)
[2021-09-01] MEDS: Carbidopa/Levodopa 25-100 mg Tablet PO SCH ×3 (08:59→20:22)
[2021-09-01] MEDS ORDERED: Cefepime 2 GM in Sodium Chloride 0.9% 100 ML IVPB SCH (09:00)
[2021-09-01] MEDS: Pantoprazole 40 MG VIAL IVP SCH (09:03)
[2021-09-01] MEDS: Dextrose 5% in Water 1,000 ML IV SCH (09:04)
[2021-09-01 17:09] LABS: Pleural Fluid, Protein 5.5 g/dL
[2021-09-01 17:49] LABS: RBC Count-Automated (BF) 16254 /cu.mm; WBC/Nucleated-Auto (BF) 9549 /cu.mm
[2021-09-01 19:05] LABS: BF Color Red; Body Fluid Source Thoracentesis Fluid; Clarity Hazy (Clear); Tube # EDTA
[2021-09-01 19:18] LABS: BF Segmented Neutrophils 65 %; Cell Count Non Hematic 9 %; Lymphocytes 26 %
[2021-09-01] MEDS: Mirtazapine 30 MG TAB PO SCH (20:22)
[2021-09-01] MEDS: Cefdinir 300 MG CAP PO SCH (20:22)
[2021-09-02] MEDS: Dextrose 5% in Water 1,000 ML IV SCH ×2 (00:35→13:05)
[2021-09-02] MEDS: Levothyroxine Sodium 50 MCG TAB PO SCH (05:53)
[2021-09-02] MEDS: Docusate 100 MG CAP PO SCH ×2 (10:26→20:34)
[2021-09-02] MEDS: Pantoprazole 40 MG VIAL IVP SCH (10:26)
[2021-09-02] MEDS: Cefdinir 300 MG CAP PO SCH ×2 (10:26→20:33)
[2021-09-02] MEDS: Amlodipine 10 MG TAB PO SCH (10:27)
[2021-09-02] MEDS: Carbidopa/Levodopa 25-100 mg Tablet PO SCH ×3 (10:27→20:33)
[2021-09-02] MEDS: Multivitamin W/ Minerals 1 TAB PO SCH (10:27)
[2021-09-02] MEDS: Ferrous Sulfate 325 MG TAB PO SCH (10:27)
[2021-09-02 14:16] LABS: #Eosinphils 0.1 thou/uL (0.0-0.7); #Monocytes 1.2 thou/uL (0.11-0.59); #Neutrophils 9.8 thou/uL (1.40-6.50); %Basophils 0.2 % (0.0-1.0); %Eosinophils 0.7 % (0.0-10.0); %Monocytes 10.2 % (0.0-10.0); %Neutrophils 80.9 % (42.0-75.0); Hemoglobin 8.8 g/dL (14.0-18.0); Mean Corpuscular HGB CONC 30.6 g/dL (32.0-36.0); Mean Corpuscular Hemoglobin 23.7 pg (27.0-31.0); Mean Corpuscular Volume 77.5 fL (78.0-98.0); Mean Platelet Volume 9.3 fL (7.4-10.4); Platelet Count 352 thou/uL (130-400); RBC Distribution Width 21.7 % (11.5-14.5); Red Blood Cell (RBC) Count 3.73 mill/uL (4.70-6.10); White Blood Cell (WBC) Count 12.2 thou/uL (4.8-10.8)
[2021-09-02 14:37] LABS: ALT (SGPT) 16 U/L (8-55); AST (SGOT) 16 U/L (5-34); Albumin 2.2 g/dL (3.4-4.8); Alkaline Phosphatase 92 U/L (40-110); Anion Gap 10 mmol/L (10-20); BUN (Urea Nitrogen) 16 mg/dL (8.4-25.7); Bilirubin, Total 0.2 mg/dL (0.2-1.2); Calc. Creatinine Clearance 63 mL/min (70-130); Calcium 8.6 mg/dL (7.8-10.44); Carbon Dioxide 23 mmol/L (23-31); Chloride 104 mmol/L (98-107); Globulin 5.7 g/dL (2.4-3.5); Glucose 143 mg/dL (83-110); Potassium 3.3 mmol/L (3.5-5.1); Protein, Total 7.9 g/dL (5.8-8.1); Sodium 134 mmol/L (136-145)
[2021-09-02] MEDS: Mirtazapine 30 MG TAB PO SCH (20:33)
[2021-09-03] MEDS: Dextrose 5% in Water 1,000 ML IV SCH ×3 (02:07→18:05)
[2021-09-03] MEDS: Levothyroxine Sodium 50 MCG TAB PO SCH (06:06)
[2021-09-03 07:04] LABS: Anion Gap 9 mmol/L (10-20); BUN (Urea Nitrogen) 14 mg/dL (8.4-25.7); Calc. Creatinine Clearance 69 mL/min (70-130); Calcium 8.2 mg/dL (7.8-10.44); Carbon Dioxide 24 mmol/L (23-31); Chloride 103 mmol/L (98-107); Glucose 127 mg/dL (83-110); Potassium 3.1 mmol/L (3.5-5.1); Sodium 133 mmol/L (136-145)
[2021-09-03 07:18] LABS: #Eosinphils 0.1 thou/uL (0.0-0.7); #Lymphocytes 1.1 thou/uL (1.20-3.40); #Monocytes 1.5 thou/uL (0.11-0.59); #Neutrophils 11.4 thou/uL (1.40-6.50); %Basophils 0.2 % (0.0-1.0); %Eosinophils 0.7 % (0.0-10.0); %Lymphocytes 7.8 % (21.0-51.0); %Monocytes 10.5 % (0.0-10.0); %Neutrophils 80.9 % (42.0-75.0); Hemoglobin 8.3 g/dL (14.0-18.0); Mean Corpuscular HGB CONC 30.5 g/dL (32.0-36.0); Mean Corpuscular Hemoglobin 23.3 pg (27.0-31.0); Mean Corpuscular Volume 76.6 fL (78.0-98.0); Mean Platelet Volume 9.6 fL (7.4-10.4); Platelet Count 357 thou/uL (130-400); RBC Distribution Width 21.7 % (11.5-14.5); Red Blood Cell (RBC) Count 3.55 mill/uL (4.70-6.10); White Blood Cell (WBC) Count 14.1 thou/uL (4.8-10.8)
[2021-09-03] MEDS: Pantoprazole 40 MG VIAL IVP SCH (08:49)
[2021-09-03] MEDS: Amlodipine 10 MG TAB PO SCH (09:06)
[2021-09-03] MEDS: Cefdinir 300 MG CAP PO SCH ×2 (09:06→21:04)
[2021-09-03] MEDS: Ferrous Sulfate 325 MG TAB PO SCH (09:07)
[2021-09-03] MEDS: Carbidopa/Levodopa 25-100 mg Tablet PO SCH ×3 (09:07→21:04)
[2021-09-03] MEDS: Multivitamin W/ Minerals 1 TAB PO SCH (09:07)
[2021-09-03] MEDS: Docusate 100 MG CAP PO SCH ×2 (09:07→21:04)
[2021-09-03] MEDS: Potassium Chloride 10 MEQ in Premix Bag 1 BAG IVPB SCH ×2 (11:45→13:15)
[2021-09-03] MEDS: Mirtazapine 30 MG TAB PO SCH (21:04)
[2021-09-04] MEDS: Dextrose 5% in Water 1,000 ML IV SCH ×2 (06:37→20:59)
[2021-09-04] MEDS: Levothyroxine Sodium 50 MCG TAB PO SCH (07:00)
[2021-09-04] MEDS: Carbidopa/Levodopa 25-100 mg Tablet PO SCH ×3 (09:23→20:57)
[2021-09-04] MEDS: Pantoprazole 40 MG VIAL IVP SCH (09:23)
[2021-09-04] MEDS: Amlodipine 10 MG TAB PO SCH (09:23)
[2021-09-04] MEDS: Cefdinir 300 MG CAP PO SCH ×2 (09:23→20:57)
[2021-09-04] MEDS: Ferrous Sulfate 325 MG TAB PO SCH (09:23)
[2021-09-04] MEDS: Multivitamin W/ Minerals 1 TAB PO SCH (09:24)
[2021-09-04] MEDS: Docusate 100 MG CAP PO SCH ×2 (09:26→20:57)
[2021-09-04] MEDS: Mirtazapine 30 MG TAB PO SCH (20:57)
[2021-09-05] MEDS: Levothyroxine Sodium 50 MCG TAB PO SCH (05:23)
[2021-09-05 07:16] LABS: Anion Gap 10 mmol/L (10-20); BUN (Urea Nitrogen) 12 mg/dL (8.4-25.7); Calc. Creatinine Clearance 70 mL/min (70-130); Calcium 8.1 mg/dL (7.8-10.44); Carbon Dioxide 23 mmol/L (23-31); Chloride 102 mmol/L (98-107); Glucose 122 mg/dL (83-110); Potassium 3.8 mmol/L (3.5-5.1); Sodium 131 mmol/L (136-145)
[2021-09-05] MEDS: Docusate 100 MG CAP PO SCH ×2 (08:39→20:39)
[2021-09-05] MEDS: Pantoprazole 40 MG VIAL IVP SCH (08:39)
[2021-09-05] MEDS: Ferrous Sulfate 325 MG TAB PO SCH (08:39)
[2021-09-05] MEDS: Carbidopa/Levodopa 25-100 mg Tablet PO SCH ×3 (08:40→20:39)
[2021-09-05] MEDS: Cefdinir 300 MG CAP PO SCH ×2 (08:40→20:39)
[2021-09-05] MEDS: Amlodipine 10 MG TAB PO SCH (08:40)
[2021-09-05] MEDS: Multivitamin W/ Minerals 1 TAB PO SCH (08:40)
[2021-09-05] MEDS: Dextrose 5% in Water 1,000 ML IV SCH (12:03)
[2021-09-05] MEDS: Mirtazapine 30 MG TAB PO SCH (20:39)
[2021-09-06] MEDS: Dextrose 5% in Water 1,000 ML IV SCH (01:38)
[2021-09-06] MEDS: Levothyroxine Sodium 50 MCG TAB PO SCH (05:36)
[2021-09-06 06:59] LABS: SARS-CoV-2 NAA Rapid Test Not Detected (NotDetected)
[2021-09-06] MEDS ORDERED: Lidocaine 1% PF 5 ML VIAL ONE (10:14)
[2021-09-06] MEDS ORDERED: PROPOFOL 200 MG/20 ML VIAL ONE (10:14)
[2021-09-06] MEDS ORDERED: Levofloxacin 500 mg/D5W 100 ml Premix Bag ONE (10:17)
[2021-09-06] MEDS: Amlodipine 10 MG TAB PO SCH (11:25)
[2021-09-06] MEDS: Ferrous Sulfate 325 MG TAB PO SCH (11:25)
[2021-09-06] MEDS: Docusate 100 MG CAP PO SCH ×2 (11:25→20:35)
[2021-09-06] MEDS: Carbidopa/Levodopa 25-100 mg Tablet PO SCH ×3 (11:25→20:38)
[2021-09-06] MEDS: Multivitamin W/ Minerals 1 TAB PO SCH (12:17)
[2021-09-06] MEDS: Pantoprazole 40 MG VIAL IVP SCH (12:34)
[2021-09-06] MEDS: Cefdinir 300 MG CAP PO SCH ×2 (12:34→20:35)
[2021-09-06] MEDS: Mirtazapine 30 MG TAB PO SCH (20:39)
[2021-09-07] MEDS: Levothyroxine Sodium 50 MCG TAB PO SCH (05:39)
[2021-09-07 08:11] VITALS: TEMP 98.2
[2021-09-07] MEDS: Cefdinir 300 MG CAP PO SCH (09:16)
[2021-09-07] MEDS: Pantoprazole 40 MG VIAL IVP SCH (09:16)
[2021-09-07] MEDS: Ferrous Sulfate 325 MG TAB PO SCH (09:17)
[2021-09-07] MEDS: Docusate 100 MG CAP PO SCH (09:19)
[2021-09-07] MEDS: Amlodipine 10 MG TAB PO SCH (09:20)
[2021-09-07] MEDS: Multivitamin W/ Minerals 1 TAB PO SCH (09:20)
[2021-09-07] MEDS: Carbidopa/Levodopa 25-100 mg Tablet PO SCH (09:20)
[2021-09-07 12:08] VITALS: BP 159/70
== END 2021-09-07 12:01 | DRG 178 ==
LOC: ERS 17:42 → T4-A 21:08
PROVIDERS: ADMIT Internal Medicine; ATTEND Internal Medicine
PROC: 0W9B3ZZ Drainage of Left Pleural Cavity, Percutaneous Approach (ICD-10-PCS; principal; 2021-09-01)
PROC: 0DH63UZ Insertion of Feeding Device into Stomach, Percutaneous Approach (ICD-10-PCS; 2021-09-06)
DX: J69.0 Pneumonitis due to inhalation of food and vomit (principal); J91.8 Pleural effusion in other conditions classified elsewhere; I13.0 Hypertensive heart and chronic kidney disease with heart failure and stage 1 through stage 4 chronic kidney disease, or unspecified chronic kidney disease; I50.32 Chronic diastolic (congestive) heart failure; E87.0 Hyperosmolality and hypernatremia; N17.9 Acute kidney failure, unspecified; E44.0 Moderate protein-calorie malnutrition; Z68.1 Body mass index [BMI] 19.9 or less, adult; Z66 Do not resuscitate; Z20.822 Contact with and (suspected) exposure to COVID-19; E03.9 Hypothyroidism, unspecified; E78.1 Pure hyperglyceridemia; E78.00 Pure hypercholesterolemia, unspecified; D63.1 Anemia in chronic kidney disease; G20 Parkinson's disease; F02.80 Dementia in other diseases classified elsewhere, unspecified severity, without behavioral disturbance, psychotic disturbance, mood disturbance, and anxiety; F43.10 Post-traumatic stress disorder, unspecified; F41.9 Anxiety disorder, unspecified; F17.210 Nicotine dependence, cigarettes, uncomplicated; I25.10 Atherosclerotic heart disease of native coronary artery without angina pectoris; N18.9 Chronic kidney disease, unspecified; E87.8 Other disorders of electrolyte and fluid balance, not elsewhere classified; E88.09 Other disorders of plasma-protein metabolism, not elsewhere classified; K80.20 Calculus of gallbladder without cholecystitis without obstruction; E86.0 Dehydration; R13.12 Dysphagia, oropharyngeal phase; E11.22 Type 2 diabetes mellitus with diabetic chronic kidney disease; I25.2 Old myocardial infarction; Z88.0 Allergy status to penicillin; Z79.899 Other long term (current) drug therapy; Z79.890 Hormone replacement therapy; I69.991 Dysphagia following unspecified cerebrovascular disease
CPT/HCPCS: 36415; 71045; 71260; 80048; 80053; 80202; 82150; 82945; 83605; 83615; 83690; 83735; 83880; 83986; 84157; 84443; 84478; 84484; 85025; 85060; 85610; 85730; 87040; 87070; 87205; 87206; 88112; 88305; 88312; 89051; 96365; 96366; 96367; C9113; J0692; J1956; J2704; J3370; J3480; J3490; J7070; Q9967; U0002; U0003; U0005